=== PATIENT | female | born 1955 | race African-American/Black ===

== ENCOUNTER 2019-03-29 06:42 | Emergency (ER) | payer OTHER ==
[~2019-03-29] VITALS: Ht 160 cm; Wt 60.3 kg
[~2019-03-29 06:42] MED LIST: IBUPROFEN600 MG ORAL; NEURONTIN300 MG ORAL; Trazadone
--- NOTE | 2019-03-29 07:27 | Emergency Room Report ---
History of Present Illness General Chief Complaint: Flu Like Symptoms Source: Patient Present Illness HPI Patient is a 64-year-old female presents after increased generalized body pain. She reports having increased cough. She reports being a smoker. She states that she had previous lung resection. She denies any fever. She reports having increased generalized body aches. This is been present for several days. She reports having some prior history of rheumatoid arthritis. She states that she is currently taking [place] for pain medication as well as meloxicam.She reports having increased cough with the green sputum. Allergies: Coded Allergies: PENICILLINS (Unverified Allergy, Unknown, 08/10/14) Patient History Past Medical History: see triage record Last Menstrual Period: na Now: No : 4 Para: 2 Reviewed Nursing Documentation: PMH: Agreed; PSxH: Agreed Nursing Documentation-PMH Hx Cardiac Problems: No - high cholesterol Hx Hypertension: Yes Hx COPD: No - one lung? Hx Neurological Problems: No - ARTHRITIS Review of Systems All Other Systems: negative except mentioned in HPI Physical Exam Vital Signs Date Time Temp Pulse Resp B/P (MAP) Pulse Ox O2 Delivery O2 Flow Rate FiO2 03/29/19 07:03 103 13 123/93 (103) 96 Room Air Sp02 EP Interpretation: reviewed, normal General Appearance: normal inspection, well appearing, no apparent distress, alert, GCS 15, Chronically Ill Head: atraumatic ENT: normal ENT inspection, hearing grossly normal, normal voice Neck: normal inspection, full range of motion, supple, no bony tend Respiratory: normal inspection, lungs clear, normal breath sounds, no respiratory distress, no retraction, no wheezing Cardiovascular #1: regular rate, rhythm, no edema Gastrointestinal: normal inspection, normal bowel sounds, non tender, soft, no guarding, no hernia Genitourinary: no CVA tenderness Musculoskeletal: normal inspection, back normal, normal range of motion Neurologic: normal inspection, alert, oriented x3, responsive, technical publications writer III-XII nml as tested, speech normal Psychiatric: normal inspection, judgement/insight normal, mood/affect normal Skin: no rash Medical Decision Making Last Vital Signs Date Time Temp Pulse Resp B/P (MAP) Pulse Ox O2 Delivery O2 Flow Rate FiO2 03/29/19 07:03 103 13 123/93 (103) 96 Room Air Referrals: NON PHYSICIAN (PCP) Donald Newman MD Mar 29, 2019 07:27
[2019-03-29 07:41] VITALS: BP 123/93
--- NOTE | 2019-03-29 07:51 | NUR ---
ED Nurse Note: PT was brought by friend by car, PT A/O x 4, follows command, states she had N/V today, denies diarrhea. No s/s of N/V currently. very cooperative, states PT used heroin yesterday, no S/S of withdraw, no difficulty swallowing; ate food that was brought with her, sandwich and coffee, cough produces thick yellow phlegm, on RA saturating at 98%, no S/S of respiratory distress. Will continue to monitor PT.
--- NOTE | 2019-03-29 07:54 | NUR ---
ED Nurse Note: labs drawn, urine collected, dropped off at lab.
[2019-03-29] MEDS ORDERED: ZITHROMAX250 MG ORAL (07:55)
[2019-03-29] MEDS ORDERED: GUAIFENESIN DM118 M1 ORAL (07:55)
--- NOTE | 2019-03-29 07:56 | Diagnostic Imaging Report ---
EXAM: XR Chest, 1 View CLINICAL HISTORY: SOB TECHNIQUE: Frontal view of the chest. COMPARISON: No relevant prior studies available. FINDINGS: Lungs: Airspace consolidation within the right lower lobe, most likely representing a lobar pneumonia. Lungs are otherwise well-inflated. No pulmonary edema. Pleural space: Unremarkable. No pneumothorax. Heart: Heart size normal. Mediastinum: No mediastinal widening or shift. Bones joints: No evidence of acute osseous abnormality. IMPRESSION: Right lower lobe airspace consolidation suspicious for pneumonia. Recommend follow-up chest radiograph to confirm complete resolution.
[2019-03-29] MEDS ORDERED: Albuterol/Ipratropium 3ml neb HHN ONE (08:00)
--- NOTE | 2019-03-29 08:11 | NUR ---
ER DISCHARGE NOTE: Patient is cleared to be discharged per ERMD, pt is aox4, on room air, with stable vital signs. pt was given dc and prescription instructions, pt was able to verbalize understanding, pt id band and iv site removed without complications. pt is able to ambulate with steady gait. pt took all belongings. Addendum: 03/29/19 at 0840 by LEENA ER DISCHARGE NOTE: Patient is cleared to be discharged per ERMD, pt is aox4, on room air, with stable vital signs. pt was given dc and prescription instructions, pt was able to verbalize understanding, pt id band and iv site removed without complications. pt is able to ambulate with steady gait. pt took all belongings. PT D/C @ 4106
[2019-03-29 08:17] VITALS: BP 117/98
== END 2019-03-29 08:31 | disposition home or self-care (01) ==
LOC: EMR 07:01
DX: R05 Cough (principal); F17.200 Nicotine dependence, unspecified, uncomplicated; I10 Essential (primary) hypertension; M19.90 Unspecified osteoarthritis, unspecified site; E78.00 Pure hypercholesterolemia, unspecified; Z88.0 Allergy status to penicillin; M06.9 Rheumatoid arthritis, unspecified
CPT/HCPCS: 71045; 94640; 94664; Z7502; 99284; J7620